=== PATIENT | female | born 1990 | race Caucasian/White ===

== ENCOUNTER 2018-11-30 08:18 | Observation (INO) | payer MEDICAID ==
[~2018-11-30] VITALS: Ht 157.5 cm; Wt 79.8 kg
[2018-11-30] MEDS ORDERED: PNV1TABL76 MT (09:40)
== END 2018-11-30 10:00 | disposition home or self-care (01) ==
LOC: 8 EST LDRP 08:18 → EDSTATUS 12-25 09:12
PROVIDERS: ADMIT Obstetrics & Gynecology; ATTEND Obstetrics & Gynecology
DX: O42.913 Preterm premature rupture of membranes, unspecified as to length of time between rupture and onset of labor, third trimester (principal); Z3A.36 36 weeks gestation of pregnancy
CPT/HCPCS: G0378 ×2; 99281